=== PATIENT | female | born 1990 | race Caucasian/White ===

== ENCOUNTER 2019-01-17 04:38 | Emergency (ER) | payer MEDICARE, MEDICAID ==
[2019-01-17] MEDS ORDERED: Ondansetron 8 MG Tab.DIS PO ONE (05:17)
--- NOTE | 2019-01-17 05:18 | EDM.PDOC ---
ED HPI GENERAL MEDICAL PROBLEM - General Chief Complaint: Genitourinary Problem Stated Complaint: KIDNEY INFECTION Time Seen by Provider: 01/17/19 04:44 Source of Information: Reports: Patient, Family History Limitations: Reports: No Limitations - History of Present Illness INITIAL COMMENTS - FREE TEXT/NARRATIVE: 28 y.o.w.f came to to the ED due to acute onset of yonatan pubic pain with painful urination and nausea. No flank/back pain, no trauma. Pt had similar symptoms in te past. No other acute med issues. BP 123/81 RR 18 Pulse ox 98% on RA Temp 62.6 Pulse 62 Onset Date: 01/17/19 Onset Time: 02:00 Duration: Hour(s): Location: Reports: Pelvis Quality: Reports: Ache, Burning, Dull Severity: Moderate Improves with: Reports: None Worsens with: Reports: None Context: Reports: Other Associated Symptoms: Reports: No Other Symptoms L mid-abdomen radiating thru to flank region Pain Score (Numeric/FACES): 6 - Related Data Allergies Allergy/AdvReac Type Severity Reaction Status Date / Time latex Allergy Rash Verified 01/17/19 04:48 Home Meds: Home Meds [place] Carbonate 300 mg PO BID 06/20/15 [History] Ciprofloxacin HCl [Cipro] 500 mg PO BID #20 tablet 01/17/19 [Rx] Phenazopyridine HCl [Pyridium] 100 mg PO Q8HR #9 tablet 01/17/19 [Rx] Past Medical History - Past Health History Medical/Surgical History: Denies Medical/Surgical History HEENT History: Reports: Other (See Below) Other HEENT History: wisdom teeth out Respiratory History: Reports: Asthma Gastrointestinal History: Reports: Other (See Below) Other Gastrointestinal History: tummy tuck Genitourinary History: Reports: Renal Calculus Other Genitourinary History: irregular periods 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 RIGGER 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: irregular 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, Musculoskeletal History: Reports: Other (See Below) Other Musculoskeletal History: DDD Neurological History: Reports: Migraines Psychiatric History: Reports: Anxiety, Bipolar, Depression, Mood Swings, Psych Hospitalization(s), Suicide Attempt Other Psychiatric History: personality disorder Endocrine/Metabolic History: Reports: Obesity/BMI 30+ Hematologic History: Reports: Blood Transfusion(s) - Infectious Disease History Infectious Disease History: Reports: Chicken Pox - Past Surgical History HEENT Surgical History: Reports: Oral Surgery Respiratory Surgical History: Reports: None Musculoskeletal Surgical History: Reports: None Social & Family History - Family History Family Medical History: Noncontributory Respiratory: Reports: Asthma : Reports: Pyelonephritis, Renal Calculus, Renal Disease/Insufficiency OBGYN: Reports: Neurological: Reports: MS Psychiatric: Reports: Bipolar, Depression, Other (See Below) Other Psychiatric Family History: Borderline - Tobacco Use Smoking Status *Q: Current Every Day Smoker Years of Tobacco use: 15 Packs/Tins Daily: 0.5 - Caffeine Use Caffeine Use: Reports: Coffee, Energy Drinks, Tea - Recreational Drug Use Recreational Drug Type: Reports: Marijuana/Hashish Recreational Drug Use Frequency: Daily ED ROS GENERAL - Review of Systems Review Of Systems: See Below Constitutional: Reports: No Symptoms HEENT: Reports: No Symptoms Respiratory: Reports: No Symptoms Cardiovascular: Reports: No Symptoms Endocrine: Reports: No Symptoms GI/Abdominal: Reports: No Symptoms : Reports: Dysuria Musculoskeletal: Reports: No Symptoms Skin: Reports: No Symptoms Neurological: Reports: No Symptoms Psychiatric: Reports: No Symptoms Hematologic/Lymphatic: Reports: No Symptoms Immunologic: Reports: No Symptoms ED EXAM, RENAL/ - Physical Exam Exam: See Below Exam Limited By: No Limitations General Appearance: Alert, WD/WN, Obese Eye Exam: Bilateral Eye: Normal Inspection Ears: Normal External Exam Nose: Normal Inspection Throat/Mouth: Normal Inspection Head: Atraumatic, Normocephalic Neck: Normal Inspection, Supple, Non-Tender Respiratory/Chest: No Respiratory Distress, Lungs Clear, Normal Breath Sounds Cardiovascular: Normal Peripheral Pulses, Regular Rate, Rhythm, No Edema, No Gallop, No JVD, No Murmur, No Rub GI/Abdominal: Normal Bowel Sounds, No Organomegaly, Tender (suprapubic) (Female) Exam: Deferred Rectal (Female) Exam: Deferred Back Exam: Normal Inspection, Full Range of Motion Extremities: Normal Inspection, Normal Range of Motion, Non-Tender, No Pedal Edema, Normal Capillary Refill Neurological: Alert, Oriented, CN II-XII Intact, Normal Cognition, Normal Gait, No Motor/Sensory Deficits Psychiatric: Normal Affect, Normal Mood Skin Exam: Warm, Dry, Intact, Normal Color, No Rash Lymphatic: No Adenopathy Course - Vital Signs Text/Narrative:: 28 y.o.w.f came to to the ED due to acute onset of yonatan pubic pain with painful urination and nausea. No flank/back pain, no trauma. Pt had similar symptoms in the past. No other acute med issues. BP 123/81 RR 18 Pulse ox 98% on RA Temp 62.6 Pulse 62 PE: Obese 28 y.o.w.f with dysuria Labs: UTI with hematuria Impression: UTI with hematuria Tx: Peridium, Cipro and Toradol Reexam: Improved Plan: D/C with instructions Last Recorded V/S: Last Vital Signs Temp 36.4 C 01/17/19 04:44 Pulse 62 01/17/19 04:44 Resp 18 01/17/19 04:44 BP 123/81 01/17/19 04:44 Pulse Ox 99 01/17/19 04:44 - Orders/Labs/Meds Labs: Laboratory Tests 01/17/19 01/17/19 Range/Units 04:57 04:57 Urine Color Yellow (YELLOW) Urine Appearance Cloudy (CLEAR) Urine pH 7.0 H (5.0-6.5) Ur Specific [place] 1.010 (1.010-1.025) Urine Protein 30 H (NEGATIVE) mg/dL Urine Glucose (UA) Normal (NORMAL) mg/dL Urine Ketones Negative (NEGATIVE) mg/dL Urine Occult Blood Large H (NEGATIVE) Urine Nitrite Negative (NEGATIVE) Urine Bilirubin Negative (NEGATIVE) Urine Urobilinogen Normal (NEGATIVE) mg/dL Ur Leukocyte Esterase Moderate H (NEGATIVE) Urine RBC 40-50 H (0-5) Urine WBC 5-10 H (0-5) Ur Squamous Epith Cells Few H (NS,R,O) Triple Phos Crystals Moderate H (NS) Amorphous Sediment Moderate Urine Bacteria Few H (NS) Urine HCG, Qual Negative (NEGATIVE) Meds: Medications Discontinued Medications Generic Name Dose Route Start Last Admin Trade Name Freq PRN Reason Stop Dose Admin Ciprofloxacin 500 mg 01/17/19 05:29 01/17/19 05:42 Ciprofloxacin Hcl PO 01/17/19 05:30 500 mg ONETIME ONE Administration Ketorolac Tromethamine 60 mg 01/17/19 05:37 01/17/19 05:44 Toradol IM 01/17/19 05:38 60 mg ONETIME ONE Administration Ondansetron HCl 8 mg 01/17/19 05:17 01/17/19 05:36 Zofran Odt PO 01/17/19 05:18 8 mg ONETIME ONE Administration Phenazopyridine HCl 95 mg 01/17/19 05:32 01/17/19 05:42 Urinary Pain Relief PO 01/17/19 05:33 95 mg TIDPC STA Administration Departure - Departure Time of Disposition: 05:33 Disposition: Home, Self-Care 01 Condition: Good Clinical Impression: UTI (urinary tract infection) Qualifiers: Urinary tract infection type: acute cystitis Hematuria presence: with hematuria Qualified Code(s): N30.01 - Acute cystitis with hematuria - Discharge Information Prescriptions: Phenazopyridine HCl [Pyridium] 100 mg PO Q8HR #9 tablet Ciprofloxacin HCl [Cipro] 500 mg PO BID #20 tablet Instructions: Ondansetron oral dissolving tablet, Ketorolac injection, Phenazopyridine tablets, Urinary Tract Infection, Adult, [id number], Ciprofloxacin tablets Referrals: Carrillo Jordan MD [Primary Care Provider] - Forms: ED Department Discharge Additional Instructions: Please increase water intake, please take the meds as recommended, please follow up by end of week if not improving, come back if your symptoms get worse acutely.
[2019-01-17] MEDS ORDERED: Ciprofloxacin 500 MG Tab PO ONE (05:29)
[2019-01-17] MEDS ORDERED: Phenazopyridine 95 MG Tab PO STA (05:32)
[2019-01-17] MEDS ORDERED: Ketorolac 60 MG/2 ML SDV IM ONE (05:37)
[2019-01-17 05:50] VITALS: BP 147/89; PULSE 63
== END 2019-01-17 05:53 | disposition home or self-care (01) ==
LOC: FB.ED 04:38
DX: N30.01 Acute cystitis with hematuria (principal); F31.9 Bipolar disorder, unspecified; F41.9 Anxiety disorder, unspecified; F17.210 Nicotine dependence, cigarettes, uncomplicated; Z91.040 Latex allergy status; Z79.899 Other long term (current) drug therapy; Z87.442 Personal history of urinary calculi
CPT/HCPCS: 81001; 81025; 96372; 99284; A9270; J1885; 99283

== ENCOUNTER 2019-04-19 01:37 | Emergency (ER) | payer MEDICARE, MEDICAID ==
[2019-04-19] MEDS ORDERED: Ondansetron 4 MG Tab.DIS PO ONE (01:38)
--- NOTE | 2019-04-19 02:01 | EDM.PDOC ---
ED HPI GENERAL MEDICAL PROBLEM - General Stated Complaint: ABDOMINAL PAIN; VOMITING Time Seen by Provider: 04/19/19 01:58 Source of Information: Reports: Patient History Limitations: Reports: No Limitations - History of Present Illness INITIAL COMMENTS - FREE TEXT/NARRATIVE: 28-year-old female with onset of burning periumbilical pain at midnight. It awoke her from sleep. It was initially mild and then became associated with vomiting and the pain has progressively worsened since that time. She rates the pain as a 9/10 now but it goes up to a 10/10 at times. She reports waxing and waning of the symptoms. The pain seems to radiate from the umbilicus to the right side. She has no back pain. She has had vomiting 6 and she has had 3-4 loose stool since this began as well. She states that she felt completely well yesterday. She was eating and drinking normally. She has had no dysuria or hematuria. No fevers or chills. She has had no blood in her bowel movements or in her emesis. No cough or difficulty breathing. There are no other associated signs or symptoms. There are no other modifying factors. Onset: Today (Midnight) Duration: Getting Worse Location: Reports: Abdomen Quality: Reports: Burning Severity: Severe Improves with: Reports: None Worsens with: Reports: Other (Palpation) Context: Reports: Other (As above) Associated Symptoms: Reports: Other (As above) Treatments MAJOR CASE DETECTIVE: Reports: Other (see below) (Nothing) - Related Data Allergies Allergy/AdvReac Type Severity Reaction Status Date / Time latex Allergy Rash Verified 04/19/19 02:11 Home Meds: Home Meds [place] Carbonate 300 mg PO BID 06/20/15 [History] Promethazine [Phenergan] 25 mg PO Q6H PRN #12 tab 04/19/19 [Rx] Past Medical History Respiratory History: Reports: Asthma Genitourinary History: Reports: Renal Calculus Other Genitourinary History: irregular periods 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, Musculoskeletal History: Reports: Other (See Below) Other Musculoskeletal History: DDD Neurological History: Reports: Migraines Psychiatric History: Reports: Anxiety, Bipolar, Depression, Mood Swings, Psych Hospitalization(s), Suicide Attempt Other Psychiatric History: personality disorder Endocrine/Metabolic History: Reports: Obesity/BMI 30+ Hematologic History: Reports: Blood Transfusion(s) - Infectious Disease History Infectious Disease History: Reports: Chicken Pox - Past Surgical History HEENT Surgical History: Reports: Oral Surgery ([place] teeth extraction) Dermatological Surgical History: Reports: Other (See Below) (Panniculectomy) Social & Family History - Family History Respiratory: Reports: Asthma : Reports: Pyelonephritis, Renal Calculus, Renal Disease/Insufficiency OBGYN: Reports: Neurological: Reports: MS Psychiatric: Reports: Bipolar, Depression, Other (See Below) Other Psychiatric Family History: Borderline - Tobacco Use Smoking Status *Q: Current Every Day Smoker - Caffeine Use Caffeine Use: Reports: Coffee, Energy Drinks, Tea - Alcohol Use Alcohol Use History: Yes Alcohol Use Frequency: Rarely - Living Situation & Occupation Living situation: Reports: Occupation: Unemployed Social History Comment: She is here with her [id number]. ED ROS GENERAL - Review of Systems Review Of Systems: See Below Constitutional: Reports: No Symptoms HEENT: Reports: No Symptoms Respiratory: Reports: No Symptoms Cardiovascular: Reports: No Symptoms Endocrine: Reports: No Symptoms GI/Abdominal: Reports: Abdominal Pain, Diarrhea, Nausea, Vomiting : Reports: No Symptoms Musculoskeletal: Reports: No Symptoms Skin: Reports: Diaphoresis (Somewhat sweaty with this) Neurological: Reports: No Symptoms Hematologic/Lymphatic: Reports: No Symptoms Immunologic: Reports: No Symptoms ED EXAM, GI/ABD - Physical Exam Exam: See Below Exam Limited By: No Limitations General Appearance: Alert, Moderate Distress, Obese Eyes: Bilateral: Normal Appearance, EOMI Ears: Normal External Exam, Hearing Grossly Normal Nose: Normal Inspection, Normal Mucosa Throat/Mouth: Normal Inspection, Normal Oropharynx, Normal Voice, No Airway Compromise Head: Atraumatic, Normocephalic Neck: Normal Inspection, Supple, Non-Tender, Full Range of Motion Respiratory/Chest: No Respiratory Distress, Lungs Clear, Normal Breath Sounds, No Accessory Muscle Use, Chest Non-Tender Cardiovascular: Normal Peripheral Pulses, Regular Rate, Rhythm, No Murmur GI/Abdominal Exam: Normal Bowel Sounds, Soft, No Mass, Tender (In her periumbilical area.). No: Rebound Back Exam: Normal Inspection, Full Range of Motion Extremities: Normal Inspection, Normal Range of Motion, Non-Tender, No Pedal Edema, Normal Capillary Refill Neurological: Alert, Oriented, CN II-XII Intact, Normal Cognition, No Motor/ Sensory Deficits Skin Exam: Warm, Intact, Normal Color, No Rash, Diaphoretic (Mildly) Course - Vital Signs Last Recorded V/S: Last Vital Signs Temp 36.4 C 04/19/19 01:55 Pulse 67 04/19/19 01:55 Resp 18 04/19/19 01:55 BP 157/69 H 04/19/19 01:55 Pulse Ox 99 04/19/19 01:55 - Orders/Labs/Meds Orders: Active Orders 24 hr Category Date Time Status Abdomen Pelvis w Cont [CT] Stat Exams 04/19/19 02:55 Taken Sodium Chloride 0.9% [Saline Flush] Med 04/19/19 02:15 Active 10 ml FLUSH ASDIRECTED PRN Peripheral IV Insertion Adult [OM.PC] Routine Oth 04/19/19 02:15 Ordered Medication Orders Sodium Chloride (Saline Flush) 10 ml FLUSH ASDIRECTED PRN PRN Reason: Keep Vein Open Last Admin: 04/19/19 02:15 Dose: 10 ml Labs: Laboratory Tests 04/19/19 04/19/19 04/19/19 Range/Units 02:20 02:20 02:30 WBC 14.7 H (4.5-12.0) X10-3/uL RBC 4.70 (3.23-5.20) x10(6)uL Hgb 14.4 (11.5-15.5) g/dL Hct 41.6 (30.0-51.3) % MCV 88.4 (80-96) fL MCH 30.7 (27.7-33.6) pg MCHC 34.7 (32.2-35.4) g/dL RDW 12.8 (11.5-15.5) % Plt Count 306 (125-369) X10(3)uL MPV 8.5 (7.4-10.4) fL Add Manual Diff Yes Neutrophils % (Manual) 70 (46-82) % Band Neutrophils % 3 (0-6) % Lymphocytes % (Manual) 16 (13-37) % Monocytes % (Manual) 7 (4-12) % Eosinophils % (Manual) 4 (0-5) % Sodium (135-145) mmol/L Potassium (3.5-5.3) mmol/L Chloride (100-110) mmol/L Carbon Dioxide (21-32) mmol/L BUN (7-18) mg/dL Creatinine (0.55-1.02) mg/dL Est Cr Clr Drug Dosing Estimated GFR (MDRD) (>60) BUN/Creatinine Ratio (9-20) Glucose (80-116) mg/dL Calcium (8.6-10.2) mg/dL Total Bilirubin (0.1-1.3) mg/dL AST (5-25) IU/L ALT (12-36) U/L Alkaline Phosphatase (56-112) IU/L C-Reactive Protein (0.5-0.9) mg/dL Total Protein (6.0-8.0) g/dL Albumin (3.5-5.2) g/dL Globulin g/dL Albumin/Globulin Ratio Lipase (73-393) U/L Urine Color Yellow (YELLOW) Urine Appearance Slightly cloudy (CLEAR) Urine pH 8.0 H (5.0-6.5) Ur Specific [place] 1.020 (1.010-1.025) Urine Protein Negative (NEGATIVE) mg/dL Urine Glucose (UA) Normal (NORMAL) mg/dL Urine Ketones Negative (NEGATIVE) mg/dL Urine Occult Blood Negative (NEGATIVE) Urine Nitrite Negative (NEGATIVE) Urine Bilirubin Negative (NEGATIVE) Urine Urobilinogen Normal (NEGATIVE) mg/dL Ur Leukocyte Esterase Negative (NEGATIVE) Urine RBC 0-5 (0-5) Urine WBC 0-5 (0-5) Ur Squamous Epith Cells Few H (NS,R,O) Urine Bacteria Few H (NS) Urine Mucus Few H (NS) Urine HCG, Qual Negative (NEGATIVE) 04/19/19 04/19/19 Range/Units 02:30 02:30 WBC (4.5-12.0) X10-3/uL RBC (3.23-5.20) x10(6)uL Hgb (11.5-15.5) g/dL Hct (30.0-51.3) % MCV (80-96) fL MCH (27.7-33.6) pg MCHC (32.2-35.4) g/dL RDW (11.5-15.5) % Plt Count (125-369) X10(3)uL MPV (7.4-10.4) fL Add Manual Diff Neutrophils % (Manual) (46-82) % Band Neutrophils % (0-6) % Lymphocytes % (Manual) (13-37) % Monocytes % (Manual) (4-12) % Eosinophils % (Manual) (0-5) % Sodium 138 (135-145) mmol/L Potassium 4.0 (3.5-5.3) mmol/L Chloride 102 (100-110) mmol/L Carbon Dioxide 25 (21-32) mmol/L BUN 20 H (7-18) mg/dL Creatinine 0.8 (0.55-1.02) mg/dL Est Cr Clr Drug Dosing TNP Estimated GFR (MDRD) > 60 (>60) BUN/Creatinine Ratio 25.0 H (9-20) Glucose 116 (80-116) mg/dL Calcium 9.4 (8.6-10.2) mg/dL Total Bilirubin 0.5 (0.1-1.3) mg/dL AST 13 (5-25) IU/L ALT 21 (12-36) U/L Alkaline Phosphatase 63 (56-112) IU/L C-Reactive Protein < 0.2 L (0.5-0.9) mg/dL Total Protein 7.6 (6.0-8.0) g/dL Albumin 4.1 (3.5-5.2) g/dL Globulin 3.5 g/dL Albumin/Globulin Ratio 1.2 Lipase 139 (73-393) U/L Urine Color (YELLOW) Urine Appearance (CLEAR) Urine pH (5.0-6.5) Ur Specific [place] (1.010-1.025) Urine Protein (NEGATIVE) mg/dL Urine Glucose (UA) (NORMAL) mg/dL Urine Ketones (NEGATIVE) mg/dL Urine Occult Blood (NEGATIVE) Urine Nitrite (NEGATIVE) Urine Bilirubin (NEGATIVE) Urine Urobilinogen (NEGATIVE) mg/dL Ur Leukocyte Esterase (NEGATIVE) Urine RBC (0-5) Urine WBC (0-5) Ur Squamous Epith Cells (NS,R,O) Urine Bacteria (NS) Urine Mucus (NS) Urine HCG, Qual (NEGATIVE) Meds: Medications Generic Name Dose Route Start Last Admin Trade Name Freq PRN Reason Stop Dose Admin Sodium Chloride 10 ml 04/19/19 02:15 04/19/19 02:15 Saline Flush FLUSH 10 ml ASDIRECTED PRN Administration Keep Vein Open Discontinued Medications Generic Name Dose Route Start Last Admin Trade Name Linda PRN Reason Stop Dose Admin Hydromorphone HCl 1 mg 04/19/19 03:02 04/19/19 03:07 Dilaudid IVPUSH 04/19/19 03:03 1 mg ONETIME ONE Administration Sodium Chloride 1,000 mls @ 999 mls/hr 04/19/19 02:16 04/19/19 02:45 Normal Saline IV 04/19/19 03:16 999 mls/hr .BOLUS ONE Administration Promethazine HCl 25 mg/ Sodium 51 mls @ 200 mls/hr 04/19/19 03:09 04/19/19 03 :14 Chloride IV 04/19/19 03:24 200 mls/hr ONETIME ONE Administration Iopamidol 100 ml 04/19/19 03:19 04/19/19 03:26 Isovue-370 (76%) IV 04/19/19 03:20 100 ml . DIRECTED ONE Administration Morphine Sulfate 4 mg 04/19/19 02:16 04/19/19 02:50 Morphine IVPUSH 04/19/19 02:17 4 mg ONETIME ONE Administration Ondansetron HCl 4 mg 04/19/19 02:11 04/19/19 02:13 Zofran IVPUSH 04/19/19 02:12 4 mg ONETIME ONE Administration - Re-Assessments/Exams Free Text/Narrative Re-Assessment/Exam: 04/19/19 03:02: Patient's pain is not really much improved after the IV morphine and some IV fluids. Her nausea is improved with the Zofran. Her white blood cell count is elevated but the remainder of her labs are relatively reassuring. Secondary to the patient's ongoing and even somewhat worsened pain the pain now radiating from her umbilicus to both sides of her abdomen, I have ordered a CT scan of her abdomen and pelvis to further evaluate the patient. In addition I have ordered Dilaudid 1 mg IV to be given. 04/19/19 04:20: Patient feels much improved. No further emesis after the Phenergan IV. Pain is down to about a 4/10. CT scan of her abdomen and pelvis showed no acute abnormality. Her abdomen remains soft and without rebound. I will give her prescriptions for antinausea nausea medication (Zofran and Phenergan). Precautions and reasons for return to the emergency department were discussed with the patient and her [id number] prior to her discharge. The patient and the [id number] are comfortable with the plans for discharge. Departure - Departure Time of Disposition: 04:25 Disposition: Home, Self-Care 01 Condition: Good (Improved) Clinical Impression: Vomiting, Diarrhea, Abdominal pain of unknown etiology - Discharge Information Prescriptions: Promethazine [Phenergan] 25 mg PO Q6H PRN #12 tab PRN Reason: Nausea/Vomiting Instructions: Abdominal Pain, Adult, [id number], Nausea and Vomiting, Adult, [id number], Diarrhea, Adult, [id number] Referrals: Carrillo Jordan MD [Primary Care Provider] - Additional Instructions: Your blood tests were reassuring and did not point toward any significant problem. Your urine test was negative. The CT scan of your abdomen and pelvis showed no evidence of obstruction or inflammation/infection. You should rest. Drink small amounts of fluids frequently and increase your fluid intake time as tolerated. Stick with a liquid diet for the next 12 hours and advance your diet rated following this. Medication as prescribed (Zofran 4 mg ODT, Phenergan 25 mg ). Follow-up with your primary doctor as needed. Back to the emergency department for unrelenting vomiting, worsening abdominal pain, high fever or any other concerning sign or symptom. - My Orders Last 24 Hours: My Active Orders 04/19/19 02:15 Sodium Chloride 0.9% [Saline Flush] 10 ml FLUSH ASDIRECTED PRN Peripheral IV Insertion Adult [OM.PC] Routine 04/19/19 02:55 Abdomen Pelvis w Cont [CT] Stat - Assessment/Plan Last 24 Hours: My Active Orders 04/19/19 02:15 Sodium Chloride 0.9% [Saline Flush] 10 ml FLUSH ASDIRECTED PRN Peripheral IV Insertion Adult [OM.PC] Routine 04/19/19 02:55 Abdomen Pelvis w Cont [CT] Stat
[2019-04-19] MEDS ORDERED: Ondansetron 4 MG/2 ML SDV IVPUSH ONE (02:11)
[2019-04-19] MEDS ORDERED: Sodium Chloride 0.9% 10 ML Syringe FLUSH PRN (02:15)
[2019-04-19] MEDS ORDERED: Sodium Chloride 0.9% 1,000 ML IV ONE (02:16)
[2019-04-19] MEDS ORDERED: Morphine 2 MG/ML Syringe IVPUSH ONE (02:16)
[2019-04-19] MEDS ORDERED: HYDROmorphone 2 MG/ML SDV IVPUSH ONE (03:02)
[2019-04-19] MEDS ORDERED: Promethazine 25 MG in Sodium Chloride 0.9% 50 ML IV ONE (03:09)
[2019-04-19] MEDS ORDERED: Iopamidol 755 Mg/ML 100 ML Bottle IV ONE (03:19)
[2019-04-19 21:49] VITALS: BP 112/70; PULSE 57
== END 2019-04-19 04:35 | disposition home or self-care (01) ==
LOC: FB.ED 01:37
DX: R11.10 Vomiting, unspecified (principal); R10.33 Periumbilical pain; R19.7 Diarrhea, unspecified; J45.909 Unspecified asthma, uncomplicated; F32.9 Major depressive disorder, single episode, unspecified; E66.9 Obesity, unspecified; Z79.899 Other long term (current) drug therapy; Z68.34 Body mass index [BMI] 34.0-34.9, adult
CPT/HCPCS: 36415; 74177; 80053; 81001; 81025; 83690; 85025; 86140; 96365; 96375; 99284-25; A9270-GY; J1170; J2270; J2405; J2550; J7030; J7050; Q9967

== ENCOUNTER 2019-04-19 22:56 | Emergency (ER) | payer MEDICARE, MEDICAID ==
[2019-04-19 23:14] VITALS: PULSE 64
[2019-04-19] MEDS: HYDROmorphone 2 MG/ML SDV IM ONE (23:45)
--- NOTE | 2019-04-19 23:45 | EDM.PDOC ---
ED HPI GENERAL MEDICAL PROBLEM - General Chief Complaint: Abdominal Pain Stated Complaint: ABDOMINAL PAIN Time Seen by Provider: 04/19/19 23:25 Source of Information: Reports: Patient History Limitations: Reports: No Limitations - History of Present Illness INITIAL COMMENTS - FREE TEXT/NARRATIVE: pt was seen here early this morning for abd pain and emesis, / had unrevealing work-up , is back tonight stating she felt fine through out the day untill 2 hrs ago were she started feeling the same abd pain again, describing periumbilical sharp pain radiating to her back 04/02 for the past 2 hrs, report dry heaves with this, denies fever, chills, or any associated urinary sx or changes with her BMs ,denies any other sx or medical concerns. pt report Hx anxiety. pt work up this morning was non-diagnostic and included a neg abd CT. - Related Data Allergies Allergy/AdvReac Type Severity Reaction Status Date / Time latex Allergy Rash Verified 04/19/19 23:12 Home Meds: Home Meds [place] Carbonate 300 mg PO BID 06/20/15 [History] Promethazine [Phenergan] 25 mg PO Q6H PRN #12 tab 04/19/19 [Rx] Past Medical History - Past Health History Medical/Surgical History: Denies Medical/Surgical History HEENT History: Reports: Other (See Below) Other HEENT History: wisdom teeth out Respiratory History: Reports: Asthma Gastrointestinal History: Reports: Other (See Below) Other Gastrointestinal History: Tummy tuck. Genitourinary History: Reports: Renal Calculus Other Genitourinary History: Irregular periods. 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 Neurological History: Reports: Migraines Psychiatric History: Reports: Anxiety, Bipolar, Depression, Mood Swings, Psych Hospitalization(s), Suicide Attempt Other Psychiatric History: Personality disorder. Endocrine/Metabolic History: Reports: Obesity/BMI 30+ Hematologic History: Reports: Blood Transfusion(s) - Infectious Disease History Infectious Disease History: Reports: Chicken Pox - Past Surgical History HEENT Surgical History: Reports: Oral Surgery Dermatological Surgical History: Reports: Other (See Below) Social & Family History - Family History Family Medical History: Noncontributory Respiratory: Reports: Asthma : Reports: Pyelonephritis, Renal Calculus, Renal Disease/Insufficiency OBGYN: Reports: Neurological: Reports: MS Psychiatric: Reports: Bipolar, Depression, Other (See Below) Other Psychiatric Family History: Borderline. - Tobacco Use Smoking Status *Q: Current Every Day Smoker Years of Tobacco use: 15 Packs/Tins Daily: 0.5 - Caffeine Use Caffeine Use: Reports: Coffee, Energy Drinks, Tea - Living Situation & Occupation Living situation: Reports: Occupation: Unemployed ED ROS GENERAL - Review of Systems Review Of Systems: See Below Constitutional: Denies: Fever, Chills, Fatigue HEENT: Reports: No Symptoms Respiratory: Reports: No Symptoms Cardiovascular: Reports: No Symptoms GI/Abdominal: Reports: Abdominal Pain, Anorexia, Flatus, Nausea, Vomiting. Denies: Constipation, Diarrhea, Hematemesis, Hematochezia, Melena : Reports: No Symptoms Psychiatric: Denies: Suicidal Ideation ED EXAM, GENERAL - Physical Exam Exam: See Below Exam Limited By: No Limitations General Appearance: Alert, Mild Distress, Moderate Distress Nose: Normal Inspection Throat/Mouth: Normal Inspection, Normal Oropharynx Head: Atraumatic Neck: Normal Inspection, Supple Respiratory/Chest: No Respiratory Distress, Lungs Clear Cardiovascular: Regular Rate, Rhythm GI/Abdominal: Normal Bowel Sounds, Soft, No Organomegaly, No Distention, No Abnormal Bruit, No Mass, Tender (tender at midline above the umbilcus , no guarding. ). No: Guarding, Rebound Course - Vital Signs Text/Narrative:: pt has recurrent abd pain with no signs of acute abd on exam , work up from this morning was reviewed and only remarkable for mild elevation with her CBC, abd CT shows no acute findings. pt has stable vitals and exam without acute abd , pt appear anxious and i do feel much of her presentation is related to underlying anxiety, pt is stable to follow on this issue with her PCP. pt was given diluadid 1 mg and ativan 1 mg IM for her comfort. Dx.. recurrent abd pain with undetermined etiology . anxiety. Last Recorded V/S: Last Vital Signs Temp 36.7 C 04/19/19 23:00 Pulse 64 04/19/19 23:00 Resp 20 04/19/19 23:00 BP 162/101 H 04/19/19 23:00 Pulse Ox 96 04/19/19 23:00 - Orders/Labs/Meds Meds: Medications Discontinued Medications Generic Name Dose Route Start Last Admin Trade Name Linda PRN Reason Stop Dose Admin Hydromorphone HCl 1 mg 04/19/19 23:39 Dilaudid IM 04/19/19 23:40 ONETIME ONE Lorazepam 1 mg 04/19/19 23:39 Ativan IM 04/19/19 23:40 ONETIME ONE Departure - Departure Time of Disposition: 23:50 Disposition: Home, Self-Care 01 Clinical Impression: Abdominal pain of unknown etiology - Discharge Information Referrals: Carrillo Jordan MD [Primary Care Provider] -
[2019-04-19] MEDS: LORazepam 2 MG/ML SDV IM ONE (23:46)
[2019-04-20 00:05] VITALS: BP 165/99
== END 2019-04-20 00:15 | disposition home or self-care (01) ==
LOC: FB.ED 22:56
DX: R10.33 Periumbilical pain (principal); J45.909 Unspecified asthma, uncomplicated; E66.9 Obesity, unspecified; F32.9 Major depressive disorder, single episode, unspecified; F41.9 Anxiety disorder, unspecified; F17.210 Nicotine dependence, cigarettes, uncomplicated; Z91.040 Latex allergy status; Z68.34 Body mass index [BMI] 34.0-34.9, adult
CPT/HCPCS: 96374; 96375; 99283; J1170; J2060

== ENCOUNTER 2019-04-20 16:58 | Emergency (ER) | payer MEDICARE, MEDICAID ==
[2019-04-20] MEDS: LORazepam 2 MG/ML SDV IM ONE (17:27)
--- NOTE | 2019-04-20 17:31 | EDM.PDOC ---
ED HPI GENERAL MEDICAL PROBLEM - General Chief Complaint: Abdominal Pain Stated Complaint: STOMACH PAIN/MIDDLE Time Seen by Provider: 04/20/19 17:25 Source of Information: Reports: Patient History Limitations: Reports: No Limitations - History of Present Illness INITIAL COMMENTS - FREE TEXT/NARRATIVE: pt is back here this afternoon, was seen here twice yesterday and earlier today at clinic for continued c/o abd , on and off , sharp 10/10 pain radiating to her back with nausea and dry heaves , denies fever or chills , denies blood in stool or changes with her bowel movements, denies any other associated sx or concerns. earlier today at clinic was given gi cocktail and toradol IM . pt appears very anxious here more so than in pain. repeat CBC today at clinic shows mild elevatin with WBC , ua is unremarkable, lipase/ CMP and CT from yesterday were non diagnostic. - Related Data Allergies Allergy/AdvReac Type Severity Reaction Status Date / Time latex Allergy Rash Verified 04/20/19 17:26 Home Meds: Home Meds [place] Carbonate 300 mg PO BID 06/20/15 [History] Promethazine [Phenergan] 25 mg PO Q6H PRN #12 tab 04/19/19 [Rx] Past Medical History - Past Health History Medical/Surgical History: Denies Medical/Surgical History HEENT History: Reports: Other (See Below) Other HEENT History: wisdom teeth out Respiratory History: Reports: Asthma Gastrointestinal History: Reports: Other (See Below) Other Gastrointestinal History: Tummy tuck. Genitourinary History: Reports: Renal Calculus Other Genitourinary History: Irregular periods. 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 Neurological History: Reports: Migraines Psychiatric History: Reports: Anxiety, Bipolar, Depression, Mood Swings, Psych Hospitalization(s), Suicide Attempt Other Psychiatric History: Personality disorder. Endocrine/Metabolic History: Reports: Obesity/BMI 30+ Hematologic History: Reports: Blood Transfusion(s) - Infectious Disease History Infectious Disease History: Reports: Chicken Pox - Past Surgical History HEENT Surgical History: Reports: Oral Surgery Dermatological Surgical History: Reports: Other (See Below) Social & Family History - Family History Family Medical History: Noncontributory Respiratory: Reports: Asthma : Reports: Pyelonephritis, Renal Calculus, Renal Disease/Insufficiency OBGYN: Reports: Neurological: Reports: MS Psychiatric: Reports: Bipolar, Depression, Other (See Below) Other Psychiatric Family History: Borderline. - Caffeine Use Caffeine Use: Reports: Coffee, Energy Drinks, Tea - Living Situation & Occupation Living situation: Reports: Occupation: Unemployed ED ROS GENERAL - Review of Systems Review Of Systems: See Below Constitutional: Reports: Chills, Fatigue. Denies: Fever HEENT: Reports: No Symptoms Respiratory: Reports: No Symptoms Cardiovascular: Reports: No Symptoms GI/Abdominal: Reports: Abdominal Pain, Anorexia, Nausea, Vomiting. Denies: Black Stool, Bloody Stool, Melena, Stool Incontinence : Reports: No Symptoms Musculoskeletal: Reports: No Symptoms Skin: Reports: No Symptoms Neurological: Reports: No Symptoms ED EXAM, GENERAL - Physical Exam Exam: See Below Exam Limited By: No Limitations General Appearance: Alert, Mild Distress Nose: Normal Inspection Throat/Mouth: Normal Inspection, Normal Oropharynx Head: Atraumatic Neck: Normal Inspection, Supple, Non-Tender Respiratory/Chest: No Respiratory Distress Cardiovascular: Normal Peripheral Pulses, Regular Rate, Rhythm GI/Abdominal: Normal Bowel Sounds, Soft, Non-Tender Back Exam: Normal Inspection Extremities: Normal Inspection Skin Exam: Warm, Dry Course - Vital Signs Text/Narrative:: pt appears very anxious here more so than in pain. repeat CBC today at clinic shows mild elevation with WBC , ua is unremarkable, lipase/ CMP and CT from yesterday were non diagnostic. CXR and RUQ US shows no acute findings here, labs from clinic CBC/CMP and UA earlier today also shows no acute findings except for mild elevation with CBC. pt here was given ativan then Dilaudid, she is comfortable after this. pt pain is recurrent , she is medically stable to follow on this issue with PCP , i do suspect biliary dyskinesia or PUD, and would recommended HIDA scan and if needed GI consultation for EGD if this continue to be a recurrent problem. diatery modifications and supportive mng was recommended also a prescription on hydrocodone 15 tablets was given to be usued only for sever pain. Last Recorded V/S: Last Vital Signs Temp 37.3 C 04/20/19 17:10 Pulse 77 04/20/19 17:10 Resp 22 H 04/20/19 17:10 BP 147/109 H 04/20/19 17:10 Pulse Ox 100 04/20/19 17:10 - Orders/Labs/Meds Orders: Active Orders 24 hr Category Date Time Status Abdomen 2V AP Flat Upright [CR] Stat Exams 04/20/19 17:23 Ordered Abdomen Ltd [US] Stat Exams 04/20/19 18:52 Taken Labs: Laboratory Tests 04/20/19 Range/Units 17:30 Urine HCG, Qual Negative (NEGATIVE) Meds: Medications Discontinued Medications Generic Name Dose Route Start Last Admin Trade Name Linda PRN Reason Stop Dose Admin Hydromorphone HCl 2 mg 04/20/19 18:50 Dilaudid IM 04/20/19 18:51 ONETIME ONE Lorazepam 2 mg 04/20/19 17:24 04/20/19 17:27 Ativan IM 04/20/19 17:25 2 mg ONETIME ONE Administration Departure - Departure Time of Disposition: 19:00 Disposition: Home, Self-Care 01 Clinical Impression: Abdominal pain of unknown etiology - Discharge Information Referrals: Carrillo Jordan MD [Primary Care Provider] - Forms: ED Department Discharge - My Orders Last 24 Hours: My Active Orders 04/20/19 17:23 Abdomen 2V AP Flat Upright [CR] Stat 04/20/19 18:52 Abdomen Ltd [US] Stat - Assessment/Plan Last 24 Hours: My Active Orders 04/20/19 17:23 Abdomen 2V AP Flat Upright [CR] Stat 04/20/19 18:52 Abdomen Ltd [US] Stat
[2019-04-20] MEDS: HYDROmorphone 2 MG/ML SDV IM ONE (18:58)
[2019-04-20 19:25] VITALS: BP 147/98; PULSE 78
--- NOTE | 2019-04-21 12:19 | CR ---
INDICATION: Abdominal pain. ABDOMEN: Four images of the abdomen in supine and upright projections were obtained 04/12/19 and compared with 11/04/15. Evidence of previous surgery is noted in the pelvis and mid abdomen, as well as lower abdomen centrally. The patient gives no history of intraabdominal surgery (history of tummy tuck). The pattern of gas and feces is fairly nonspecific without evidence of free air or obstruction. No organomegaly, mass lesions, or free fluid collections were identified. No pathologic calcifications were seen. IMPRESSION: Nonspecific abdomen. MTDD
--- NOTE | 2019-04-21 12:23 | US ---
INDICATION: Abdominal pain - subxiphoid. RIGHT UPPER QUADRANT/GALLBLADDER ULTRASOUND: Multiple ultrasonic images were obtained, 04/20/19, and compared with CT from 04/19/19. Findings were also compared with 06/21/15 ultrasound of the abdomen, complete. The liver has a normal appearance. It measured 15.5 cm anterior-posterior. The right kidney had a normal appearance measuring 10.5 x 3.6 x 5.5 cm. The gallbladder was unremarkable, measuring 6 x 3 x 3.9 cm. The common bile duct was normal in caliber at 4.3 mm. The pancreas appeared to be normal. No mass lesions or free fluid collections were demonstrated. IMPRESSION: Normal right upper quadrant/gallbladder ultrasound. [facility]
== END 2019-04-20 19:20 | disposition home or self-care (01) ==
LOC: FB.ED 16:58
DX: R10.9 Unspecified abdominal pain (principal); E66.9 Obesity, unspecified; J45.909 Unspecified asthma, uncomplicated; F32.9 Major depressive disorder, single episode, unspecified; F41.9 Anxiety disorder, unspecified; Z91.040 Latex allergy status; Z68.34 Body mass index [BMI] 34.0-34.9, adult
CPT/HCPCS: 74019; 76705; 81025; 96372; 99284; J1170; J2060

== ENCOUNTER 2019-08-29 18:05 | Emergency (ER) | payer MEDICARE, MEDICAID ==
[2019-08-29] MEDS ORDERED: Ondansetron 4 MG Tab.DIS PO ONE (18:06)
[2019-08-29] MEDS ORDERED: Ondansetron 4 MG/2 ML SDV IVPUSH ONE (18:32)
[2019-08-29] MEDS ORDERED: Sodium Chloride 0.9% 1,000 ML IV SCH (18:45)
--- NOTE | 2019-08-29 19:04 | EDM.PDOC ---
ED HPI GENERAL MEDICAL PROBLEM - General Chief Complaint: Abdominal Pain Stated Complaint: RT SIDE PAIN,FEVER Time Seen by Provider: 08/29/19 18:45 Source of Information: Reports: Patient History Limitations: Reports: No Limitations - History of Present Illness INITIAL COMMENTS - FREE TEXT/NARRATIVE: has been ill for 3 days states she developed nausea and vomiting at the beginning, vomited at least 6 times non bloody no fever or chill s has not had BM for the 3 days earlier this am developed R sided lower abd pain , that is constant now seems to have moved to periumbilical area Onset: Gradual Onset Date: 08/26/19 Duration: Getting Worse Location: Reports: Abdomen Quality: Reports: Ache Severity: Moderate Improves with: Reports: None Worsens with: Reports: Movement Associated Symptoms: Reports: Loss of Appetite, Nausea/Vomiting Right Abdomen Pain Score (Numeric/FACES): 6 - Related Data Allergies Allergy/AdvReac Type Severity Reaction Status Date / Time latex Allergy Rash Verified 04/20/19 17:26 Home Meds: Home Meds ARIPiprazole [Aripiprazole] 5 mg PO DAILY 08/29/19 [History] hydrOXYzine pamoate [Hydroxyzine Pamoate] 25 mg PO QID PRN 08/29/19 [History] Past Medical History - Past Health History Medical/Surgical History: Denies Medical/Surgical History HEENT History: Reports: Other (See Below) Other HEENT History: wisdom teeth out Respiratory History: Reports: Asthma Gastrointestinal History: Reports: Other (See Below) Other Gastrointestinal History: Tummy tuck. Genitourinary History: Reports: Renal Calculus Other Genitourinary History: Irregular periods. 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 Neurological History: Reports: Migraines Psychiatric History: Reports: Anxiety, Bipolar, Depression, Mood Swings, Psych Hospitalization(s), Suicide Attempt Other Psychiatric History: Personality disorder. Endocrine/Metabolic History: Reports: Obesity/BMI 30+ Hematologic History: Reports: Blood Transfusion(s) - Infectious Disease History Infectious Disease History: Reports: Chicken Pox - Past Surgical History HEENT Surgical History: Reports: Oral Surgery Dermatological Surgical History: Reports: Other (See Below) Social & Family History - Family History Family Medical History: Noncontributory Respiratory: Reports: Asthma : Reports: Pyelonephritis, Renal Calculus, Renal Disease/Insufficiency OBGYN: Reports: Neurological: Reports: MS Psychiatric: Reports: Bipolar, Depression, Other (See Below) Other Psychiatric Family History: Borderline. - Tobacco Use Smoking Status *Q: Current Every Day Smoker Years of Tobacco use: 15 Packs/Tins Daily: 0.5 - Caffeine Use Caffeine Use: Reports: Tea - Recreational Drug Use Recreational Drug Use: No - Living Situation & Occupation Living situation: Reports: Occupation: Unemployed ED ROS GENERAL - Review of Systems Review Of Systems: See Below Constitutional: Reports: Malaise HEENT: Reports: No Symptoms Respiratory: Reports: No Symptoms Cardiovascular: Reports: No Symptoms Endocrine: Reports: No Symptoms GI/Abdominal: Reports: Anorexia, Constipation, Decreased Appetite, Distension, Nausea, Vomiting : Denies: Dysuria, Flank Pain, Hematuria Musculoskeletal: Reports: No Symptoms Skin: Reports: No Symptoms Neurological: Reports: No Symptoms Psychiatric: Reports: No Symptoms ED EXAM, GI/ABD - Physical Exam Exam: See Below Exam Limited By: No Limitations General Appearance: Alert Eyes: Bilateral: EOMI Ears: Normal External Exam Nose: Normal Inspection Throat/Mouth: Normal Oropharynx Head: Atraumatic Neck: Supple, Non-Tender Respiratory/Chest: No Respiratory Distress Cardiovascular: Regular Rate, Rhythm GI/Abdominal Exam: Soft. No: Guarding Back Exam: Full Range of Motion Extremities: Normal Range of Motion Neurological: Alert, Oriented Psychiatric: Normal Affect Skin Exam: Warm Course - Vital Signs Last Recorded V/S: Last Vital Signs Temp 36.8 C 08/29/19 18:29 Pulse 64 08/29/19 18:29 Resp 18 08/29/19 18:29 BP 136/87 08/29/19 18:29 Pulse Ox 95 08/29/19 18:29 - Orders/Labs/Meds Orders: Active Orders 24 hr Category Date Time Status UA W/MICROSCOPIC [URIN] Stat Lab 08/29/19 18:33 Ordered Sodium Chloride 0.9% [Normal Saline] 1,000 ml Med 08/29/19 18:45 Active IV ASDIRECTED Medication Orders Sodium Chloride (Normal Saline) 1,000 mls @ 999 mls/hr IV ASDIRECTED DEREK Last Admin: 08/29/19 18:48 Dose: 999 mls/hr Meds: Medications Generic Name Dose Route Start Last Admin Trade Name Linda PRN Reason Stop Dose Admin Sodium Chloride 1,000 mls @ 999 mls/hr 08/29/19 18:45 08/29/19 18:48 Normal Saline IV 999 mls/hr ASDIRECTED DEREK Administration Discontinued Medications Generic Name Dose Route Start Last Admin Trade Name Linda PRN Reason Stop Dose Admin Ondansetron HCl 4 mg 08/29/19 18:32 08/29/19 18:47 Zofran IVPUSH 08/29/19 18:33 4 mg ONETIME ONE Administration - Re-Assessments/Exams Free Text/Narrative Re-Assessment/Exam: 08/29/19 19:05 zofran, IVF , UA, xray abd ordered 08/29/19 19:08 pt signed off to next provider Departure - Departure Time of Disposition: 19:05 Disposition: Home, Self-Care 01 Condition: Fair Clinical Impression: Abdominal pain - Discharge Information *PRESCRIPTION DRUG MONITORING PROGRAM REVIEWED*: Not Applicable *COPY OF PRESCRIPTION DRUG MONITORING REPORT IN PATIENT RAVINDRA: Not Applicable Referrals: Carrillo Jordan MD [Primary Care Provider] - Sepsis Event Note - Evaluation Sepsis Screening Result: No Definite Risk - Focused Exam Vital Signs: Vital Signs Temp Pulse Resp BP Pulse Ox 08/29/19 18:29 36.8 C 64 18 136/87 95 Date Exam was Performed: 08/29/19 Time Exam was Performed: 18:59 - My Orders Last 24 Hours: My Active Orders 08/29/19 18:33 UA W/MICROSCOPIC [URIN] Stat 08/29/19 18:45 Sodium Chloride 0.9% [Normal Saline] 1,000 ml IV ASDIRECTED - Assessment/Plan Last 24 Hours: My Active Orders 08/29/19 18:33 UA W/MICROSCOPIC [URIN] Stat 08/29/19 18:45 Sodium Chloride 0.9% [Normal Saline] 1,000 ml IV ASDIRECTED
[2019-08-29] MEDS ORDERED: Ketorolac 30 MG/ML SDV IVPUSH ONE (20:29)
[2019-08-29 21:19] VITALS: BP 118/73; PULSE 66
--- NOTE | 2019-08-31 10:42 | CR ---
INDICATION: Abdominal pain, vomiting. No BE times 3 days. ABDOMEN, TWO VIEWS: Four views of the abdomen were obtained in supine and upright projections 08/29/2019 and compared with 04/20/2019 again revealing what appears to be clips compatible with previous surgery overlying the sacrum and pelvis, as well as overlying the mid lumbar spine. A minimal dextroconvex scoliosis is noted at the thoracolumbar spine. The pattern of gas and feces is nonspecific without evidence of free air or obstruction. A normal amount of stool is suggested. No organomegaly, mass lesions or pathologic calcifications were noted. IMPRESSION: Nonacute postsurgical abdomen. MTDD
--- NOTE | 2019-08-31 12:08 | ER ---
DATE SEEN: 08/29/2019 ADDENDUM: I saw this patient after she was seen by Dr. Renner. She presented with abdominal pain on the right side for 3 days, associated with vomiting and moderate pain. No fever or urinary symptoms. Has a history of kidney stones, but she felt that this was different. She complains of burning in the chest when she vomits. ALLERGIES: Latex. REVIEW OF SYSTEMS: No recent and period is regular. PHYSICAL EXAMINATION: GENERAL: Well nourished. VITAL SIGNS: Temp 98.2. ABDOMEN: Soft with mild tenderness to right pelvic area. Normal bowel sounds. CHEST: Clear. LABORATORY DATA: Labs were normal including a UA. X-ray of the abdomen and pelvis was negative. IMPRESSION: Acute abdominal pain of unknown reason. PLAN: Zofran was given. IV fluids. I will send her home after giving her Toradol 30 mg IV. Follow up in the office in 1 to 2 days. /[id number]
== END 2019-08-29 21:05 | disposition home or self-care (01) ==
LOC: FB.ED 18:05
DX: R10.9 Unspecified abdominal pain (principal); J45.909 Unspecified asthma, uncomplicated; F17.210 Nicotine dependence, cigarettes, uncomplicated; Z91.040 Latex allergy status
CPT/HCPCS: 36415; 74019; 80048; 81001; 85027; 96361; 96374; 96375; 99283; 99284; A9270; J1885; J2405; J7030

== ENCOUNTER 2020-04-01 06:58 | Emergency (ER) | payer MEDICARE, MEDICAID ==
[2020-04-01] MEDS ORDERED: Ketorolac 30 MG/ML SDV IVPUSH ONE (07:24)
[2020-04-01] MEDS ORDERED: Sodium Chloride 0.9% 1,000 ML IV ONE (07:36)
--- NOTE | 2020-04-01 07:43 | EDM.PDOC ---
ED HPI GENERAL MEDICAL PROBLEM - General Chief Complaint: Flank Pain Time Seen by Provider: 04/01/20 07:25 Source of Information: Reports: Patient History Limitations: Reports: No Limitations - History of Present Illness INITIAL COMMENTS - FREE TEXT/NARRATIVE: c/o LLQ pain pt states she felt fine yesterday, slept through the night awoke 1.5h ago and went to bathroom, had a sharp pain in her bladder with void that radiated into her LLQ, pain has persisted and been sharp and up to 04/02 has h/o renal colic has had vasectomy, states she has felt fine otherwise no n/v, no f/c/d, no cough/sob no prior abd surgery except removal of adipose tissue - Related Data Allergies Allergy/AdvReac Type Severity Reaction Status Date / Time latex Allergy Rash Verified 04/01/20 07:19 Home Meds: Home Meds ARIPiprazole [Abilify] 20 mg PO DAILY 04/01/20 [History] Omeprazole 40 mg PO DAILY 04/01/20 [History] Sulfamethoxazole/Trimethoprim [Sulfamethoxazole-Tmp Ds Tablet] 1 each PO BID #6 tablet 04/01/20 [Rx] Past Medical History - Past Health History Medical/Surgical History: Denies Medical/Surgical History HEENT History: Reports: Other (See Below) Other HEENT History: wisdom teeth out Respiratory History: Reports: Asthma Gastrointestinal History: Reports: Other (See Below) Other Gastrointestinal History: Tummy tuck. Genitourinary History: Reports: Renal Calculus Other Genitourinary History: Irregular periods. 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 Neurological History: Reports: Migraines Psychiatric History: Reports: Anxiety, Bipolar, Depression, Mood Swings, Psych Hospitalization(s), Suicide Attempt Other Psychiatric History: Personality disorder. Endocrine/Metabolic History: Reports: Obesity/BMI 30+ Hematologic History: Reports: Blood Transfusion(s) - Infectious Disease History Infectious Disease History: Reports: Chicken Pox - Past Surgical History HEENT Surgical History: Reports: Oral Surgery Dermatological Surgical History: Reports: Other (See Below) Social & Family History - Family History Family Medical History: Noncontributory Respiratory: Reports: Asthma : Reports: Pyelonephritis, Renal Calculus, Renal Disease/Insufficiency OBGYN: Reports: Neurological: Reports: MS Psychiatric: Reports: Bipolar, Depression, Other (See Below) Other Psychiatric Family History: Borderline. - Caffeine Use Caffeine Use: Reports: Tea - Living Situation & Occupation Living situation: Reports: Occupation: Unemployed ED ROS GENERAL - Review of Systems Review Of Systems: See Below Constitutional: Reports: No Symptoms HEENT: Reports: No Symptoms Respiratory: Reports: No Symptoms Cardiovascular: Reports: No Symptoms Endocrine: Reports: No Symptoms GI/Abdominal: Reports: Abdominal Pain. Denies: Diarrhea : Reports: Dysuria, Flank Pain. Denies: Frequency Musculoskeletal: Reports: No Symptoms Skin: Reports: No Symptoms Neurological: Reports: No Symptoms Psychiatric: Reports: No Symptoms Hematologic/Lymphatic: Reports: No Symptoms Immunologic: Reports: No Symptoms ED EXAM, GI/ABD - Physical Exam Exam: See Below Exam Limited By: No Limitations General Appearance: Alert, WD/WN, Mild Distress Head: Atraumatic, Normocephalic Neck: Normal Inspection, Supple, Non-Tender, Full Range of Motion. No: Lymphadenopathy (R), Lymphadenopathy (L) Respiratory/Chest: No Respiratory Distress, Lungs Clear, Normal Breath Sounds, No Accessory Muscle Use, Chest Non-Tender Cardiovascular: Regular Rate, Rhythm, No Edema, No Gallop, No Murmur GI/Abdominal Exam: Other (nl BS, soft, mild tender in suprapubic area and just to L of midline, no flank tender, no CVAT b/l, ND) Back Exam: Normal Inspection, Full Range of Motion. No: CVA Tenderness (R), CVA Tenderness (L) Extremities: Normal Inspection, Non-Tender, No Pedal Edema Neurological: Alert, Oriented, CN II-XII Intact, Normal Cognition, No Motor/Sensory Deficits Psychiatric: Anxious Skin Exam: Warm, Dry, Intact, Normal Color, No Rash Lymphatic: No Adenopathy Course - Orders/Labs/Meds Orders: Active Orders 24 hr Category Date Time Status Abdomen Pelvis wo Cont [CT] Stat Exams 04/01/20 07:37 Ordered CULTURE URINE [RM] Stat Lab 04/01/20 08:49 Ordered Labs: Laboratory Tests 04/01/20 04/01/20 04/01/20 Range/Units 07:20 07:44 07:44 WBC 8.6 (4.5-12.0) X10-3/uL RBC 4.54 (3.23-5.20) x10(6)uL Hgb 13.7 (11.5-15.5) g/dL Hct 40.7 (30.0-51.3) % MCV 89.6 (80-96) fL MCH 30.2 (27.7-33.6) pg MCHC 33.7 (32.2-35.4) g/dL RDW 12.2 (11.5-15.5) % Plt Count 285 (125-369) X10(3)uL MPV 7.8 (7.4-10.4) fL Neut % (Auto) 63.5 (46-82) % Lymph % (Auto) 24.8 (13-37) % Fountain % (Auto) 6.1 (4-12) % Eos % (Auto) 5 (1.0-5.0) % Baso % (Auto) 1 (0-2) % Neut # (Auto) 5.5 (1.6-8.3) # Lymph # (Auto) 2.1 (0.6-5.0) # Fountain # (Auto) 0.5 (0.0-1.3) # Eos # (Auto) 0.4 (0.0-0.8) # Baso # (Auto) 0.1 (0.0-0.2) # Sodium 139 (135-145) mmol/L Potassium 4.2 (3.5-5.3) mmol/L Chloride 104 (100-110) mmol/L Carbon Dioxide 27 (21-32) mmol/L BUN 16 (7-18) mg/dL Creatinine 0.7 (0.55-1.02) mg/dL Est Cr Clr Drug Dosing TNP Estimated GFR (MDRD) > 60 (>60) BUN/Creatinine Ratio 22.9 H (9-20) Glucose 105 (80-116) mg/dL Calcium 8.5 L (8.6-10.2) mg/dL Total Bilirubin 0.3 (0.1-1.3) mg/dL AST 12 (5-25) IU/L ALT 19 (12-36) U/L Alkaline Phosphatase 57 (56-112) IU/L C-Reactive Protein (0.5-0.9) mg/dL Total Protein 7.1 (6.0-8.0) g/dL Albumin 3.6 (3.5-5.2) g/dL Globulin 3.5 g/dL Albumin/Globulin Ratio 1.0 Urine Color Yellow (YELLOW) Urine Appearance Cloudy (CLEAR) Urine pH 5.0 (5.0-6.5) Ur Specific Jackson 1.025 (1.010-1.025) Urine Protein Negative (NEGATIVE) mg/dL Urine Glucose (UA) Normal (NORMAL) mg/dL Urine Ketones Negative (NEGATIVE) mg/dL Urine Occult Blood Large H (NEGATIVE) Urine Nitrite Negative (NEGATIVE) Urine Bilirubin Negative (NEGATIVE) Urine Urobilinogen Normal (NEGATIVE) mg/dL Ur Leukocyte Esterase Negative (NEGATIVE) Urine RBC 50-75 H (0-5) Urine WBC 0-5 (0-5) Ur Squamous Epith Cells Many H (NS,R,O) Urine Bacteria Many H (NS) 04/01/20 Range/Units 07:44 WBC (4.5-12.0) X10-3/uL RBC (3.23-5.20) x10(6)uL Hgb (11.5-15.5) g/dL Hct (30.0-51.3) % MCV (80-96) fL MCH (27.7-33.6) pg MCHC (32.2-35.4) g/dL RDW (11.5-15.5) % Plt Count (125-369) X10(3)uL MPV (7.4-10.4) fL Neut % (Auto) (46-82) % Lymph % (Auto) (13-37) % Fountain % (Auto) (4-12) % Eos % (Auto) (1.0-5.0) % Baso % (Auto) (0-2) % Neut # (Auto) (1.6-8.3) # Lymph # (Auto) (0.6-5.0) # Fountain # (Auto) (0.0-1.3) # Eos # (Auto) (0.0-0.8) # Baso # (Auto) (0.0-0.2) # Sodium (135-145) mmol/L Potassium (3.5-5.3) mmol/L Chloride (100-110) mmol/L Carbon Dioxide (21-32) mmol/L BUN (7-18) mg/dL Creatinine (0.55-1.02) mg/dL Est Cr Clr Drug Dosing Estimated GFR (MDRD) (>60) BUN/Creatinine Ratio (9-20) Glucose (80-116) mg/dL Calcium (8.6-10.2) mg/dL Total Bilirubin (0.1-1.3) mg/dL AST (5-25) IU/L ALT (12-36) U/L Alkaline Phosphatase (56-112) IU/L C-Reactive Protein < 0.2 L (0.5-0.9) mg/dL Total Protein (6.0-8.0) g/dL Albumin (3.5-5.2) g/dL Globulin g/dL Albumin/Globulin Ratio Urine Color (YELLOW) Urine Appearance (CLEAR) Urine pH (5.0-6.5) Ur Specific Jackson (1.010-1.025) Urine Protein (NEGATIVE) mg/dL Urine Glucose (UA) (NORMAL) mg/dL Urine Ketones (NEGATIVE) mg/dL Urine Occult Blood (NEGATIVE) Urine Nitrite (NEGATIVE) Urine Bilirubin (NEGATIVE) Urine Urobilinogen (NEGATIVE) mg/dL Ur Leukocyte Esterase (NEGATIVE) Urine RBC (0-5) Urine WBC (0-5) Ur Squamous Epith Cells (NS,R,O) Urine Bacteria (NS) Meds: Medications Discontinued Medications Generic Name Dose Route Start Last Admin Trade Name Freq PRN Reason Stop Dose Admin Sodium Chloride 1,000 mls @ 999 mls/hr 04/01/20 07:36 04/01/20 08:19 Normal Saline IV 04/01/20 08:36 999 mls/hr .BOLUS ONE Administration Ketorolac Tromethamine 30 mg 04/01/20 07:24 04/01/20 08:18 Toradol IVPUSH 04/01/20 07:25 30 mg ONETIME ONE Administration - Re-Assessments/Exams Free Text/Narrative Re-Assessment/Exam: 04/01/20 09:45 CT abd/pelvis without contrast shows a 3 mm stone in the bladder pt is without sxs u/a shows moderate bacteria and is c/w UTI, UC pending, will tx x 3d with tmp/smx DS u/a also with rbc c/w stone and renal colic, pt appears to have passed this stone this AM immediately prior to arriving at ED Departure - Departure Time of Disposition: 09:41 Disposition: Home, Self-Care 01 Condition: Good Clinical Impression: Renal colic on left side, Left ureteral calculus Urinary tract infection Qualifiers: Urinary tract infection type: acute cystitis Hematuria presence: with hematuria Qualified Code(s): N30.01 - Acute cystitis with hematuria - Discharge Information *PRESCRIPTION DRUG MONITORING PROGRAM REVIEWED*: Yes *COPY OF PRESCRIPTION DRUG MONITORING REPORT IN PATIENT RAVINDRA: No Prescriptions: Sulfamethoxazole/Trimethoprim [Sulfamethoxazole-Tmp Ds Tablet] 1 each PO BID #6 tablet Instructions: Kidney Stones, Urinary Tract Infection, Adult Forms: ED Department Discharge Additional Instructions: For infection, take sulfa antibiotic 1 tab 2 times a day for 3 days. Maintain fluids. See your doctor in 3-4 days for further evaluation and recommendations. - My Orders Last 24 Hours: My Active Orders 04/01/20 07:37 Abdomen Pelvis wo Cont [CT] Stat 04/01/20 08:49 CULTURE URINE [RM] Stat - Assessment/Plan Last 24 Hours: My Active Orders 04/01/20 07:37 Abdomen Pelvis wo Cont [CT] Stat 04/01/20 08:49 CULTURE URINE [RM] Stat
[2020-04-01 11:35] VITALS: BP 110/62; PULSE 70
== END 2020-04-01 09:52 | disposition home or self-care (01) ==
LOC: FB.ED 06:58
DX: N30.01 Acute cystitis with hematuria (principal); N20.2 Calculus of kidney with calculus of ureter; J45.909 Unspecified asthma, uncomplicated; F41.9 Anxiety disorder, unspecified; F31.9 Bipolar disorder, unspecified; E66.9 Obesity, unspecified; Z91.040 Latex allergy status; Z79.899 Other long term (current) drug therapy
CPT/HCPCS: 36415; 74176; 80053; 81001; 85025; 86140; 87086; 96374; 99284; J1885; J7030

== ENCOUNTER 2021-08-13 15:13 | Emergency (ER) | payer MEDICARE, MEDICAID ==
[2021-08-13 15:27] VITALS: BP 132/89; PULSE 95
[2021-08-13] MEDS ORDERED: Codeine/guaiFENesin 10-100 MG/5 ML Syrup 5 ML Cup PO ONE (16:16)
[2021-08-13] MEDS ORDERED: Ondansetron 4 MG Tab.DIS PO ONE ×2 (16:17→18:21)
[2021-08-13] MEDS ORDERED: Acetaminophen 500 MG Tab PO PRN (16:17)
[2021-08-13] MEDS ORDERED: predniSONE 20 MG Tab PO ONE (16:18)
[2021-08-13] MEDS ORDERED: Albuterol/Ipratropium 3.0-0.5 MG/3 ML Neb Soln NEB ONE (16:18)
[2021-08-13] MEDS ORDERED: Ibuprofen 400 MG Tab PO ONE (16:19)
[2021-08-13] MEDS ORDERED: Azithromycin 500 MG in Sodium Chloride 0.9% 250 ML IV ONE (18:20)
[2021-08-13] MEDS ORDERED: Lactated Ringers 1,000 ML IV ONE (18:21)
[2021-08-13] MEDS ORDERED: Potassium Chloride 20 MEQ Tab.ER PO ONE (18:24)
== END 2021-08-13 20:45 | disposition home or self-care (01) ==
LOC: FB.ED 15:13
DX: J18.9 Pneumonia, unspecified organism (principal); J45.909 Unspecified asthma, uncomplicated; F17.200 Nicotine dependence, unspecified, uncomplicated; E66.9 Obesity, unspecified; Z68.36 Body mass index [BMI] 36.0-36.9, adult; Z91.040 Latex allergy status; Z79.899 Other long term (current) drug therapy
CPT/HCPCS: 36415; 71046; 80053; 83735; 85025; 87449; 96365; 99285; A9270; J0456; J7050; J7120; J7512; Q0162; U0002; J7620-GY

== ENCOUNTER 2022-11-08 21:13 | Emergency (ER) | payer OTHER, MEDICAID ==
[2022-11-08 21:30] VITALS: BP 140/93; PULSE 77
[2022-11-08] MEDS ORDERED: Lidocaine 2% Viscous Solution 15 ML UD PO ONE (21:30)
[2022-11-08] MEDS ORDERED: Lidocaine 2% Viscous Solution 15 ML UD TOP ONE (21:46)
== END 2022-11-08 22:45 | disposition home or self-care (01) ==
LOC: FB.ED 21:13
DX: T25.211A Burn of second degree of right ankle, initial encounter (principal); J45.909 Unspecified asthma, uncomplicated; E66.9 Obesity, unspecified; Z72.0 Tobacco use; Z68.36 Body mass index [BMI] 36.0-36.9, adult; X10.2XXA Contact with fats and cooking oils, initial encounter
CPT/HCPCS: 99283; A9270